=== PATIENT | female | born 1990 | race Caucasian/White ===

== ENCOUNTER 2019-03-29 13:25 | Emergency (ER) | payer MEDICAID, OTHER | END 2019-03-29 14:19 | disposition left against medical advice (07) | LOC: JP.ED 13:25 | DX: Z53.21 Procedure and treatment not carried out due to patient leaving prior to being seen by health care provider (principal) ==

== ENCOUNTER 2019-04-01 13:28 | Inpatient (IN) | payer MEDICAID ==
[2019-04-01] MEDS ORDERED: Ondansetron 4 MG/2 ML SDV IV PRN (13:56)
[2019-04-01] MEDS ORDERED: Polyethylene Glycol 3350 Powder 17 GM Packet PO PRN (13:56)
[2019-04-01] MEDS ORDERED: Albuterol 0.083% 2.5 MG/3 ML Neb Soln NEB PRN (13:56)
[2019-04-01] MEDS ORDERED: Sodium Chloride 0.9% 10 ML Syringe FLUSH PRN (13:56)
[2019-04-01] MEDS ORDERED: Lactated Ringers 1,000 ML IV SCH (14:00)
[2019-04-01] MEDS ORDERED: Melatonin 3 MG Tab PO PRN (14:00)
[2019-04-01] MEDS: Lactobacillus Rhamnosus GG (Probiotic) Cap PO SCH ×2 (15:34→21:45)
[2019-04-01] MEDS: Acetaminophen 325 MG Tab PO PRN ×2 (15:40→20:07)
[2019-04-01] MEDS: Meropenem 1 GM in Sodium Chloride 0.9% 100 ML IV SCH ×2 (16:36→22:52)
--- NOTE | 2019-04-01 17:21 | PCM.HP ---
H&P History of Present Illness - General Date of Service: 04/01/19 Admit Problem/Dx: Admission Diagnosis/Problem Admission Diagnosis/Problem Pneumonia Source of Information: Patient, Family, Provider, RN Notes Reviewed History Limitations: Reports: No Limitations - History of Present Illness Initial Comments - Free Text/Narative: Ms. Guy is a 28-year-old woman who was admitted through the emergency department as a direct admission from the walk-in clinic with right lower lobe pneumonia, having failed outpatient management. She reports that she's been ill for approximately one week with relatively high fevers up to 103F. She was first seen and evaluated in the walk-in clinic 4 days ago, chest x-ray documented a right lower lobe infiltrate. She was treated with oral antibiotic therapy with clindamycin but continued to have significant temperature elevation so she was seen for follow-up 2 days ago and at that time was switched to oral antibiotic therapy with levofloxacin. She had received 1 dose of levofloxacin and despite the change continued to have high temperatures with shortness of breath weakness and fatigue. Follow-up in the walk-in clinic today showed an enlarging infiltrate and normal white blood cell count. Headache Pain Score (Numeric/FACES): 2 - Related Data Allergies/Adverse Reactions: Allergies Allergy/AdvReac Type Severity Reaction Status Date / Time nitrofurantoin Allergy Other Verified 04/01/19 13:59 [From Macrobid] pertussis vaccine,adsorbed Allergy Other Verified 04/01/19 14:00 ranitidine [From Zantac] Allergy Other Verified 04/01/19 13:59 Home Medications: Home Meds Levothyroxine Sodium [Synthroid] 150 mcg PO DAILY 04/01/19 [History] Past Medical History DEVELOPMENT REP History: Reports: Endocrine/Metabolic History: Reports: Hypothyroidism Oncologic (Cancer) History: Reports: Thyroid - Past Surgical History Endocrine Surgical History: Reports: Thyroidectomy Social & Family History - Family History Family Medical History: Noncontributory - Tobacco Use Smoking Status *Q: Never Smoker Second Hand Smoke Exposure: No - Caffeine Use Caffeine Use: Reports: Coffee - Recreational Drug Use Recreational Drug Use: No H&P Review of Systems - Review of Systems: Review Of Systems: See Below General: Reports: Fever, Chills, Weakness, Diaphoresis, Decreased Appetite HEENT: Reports: No Symptoms Pulmonary: Reports: Shortness of Breath, Cough. Denies: Wheezing, Sputum, Hemoptysis Cardiovascular: Reports: Dyspnea on Exertion. Denies: Chest Pain, Palpitations , Orthopnea, PND, Edema, Lightheadedness Gastrointestinal: Reports: No Symptoms Genitourinary: Reports: No Symptoms Musculoskeletal: Reports: No Symptoms Skin: Reports: No Symptoms Psychiatric: Reports: No Symptoms Neurological: Reports: No Symptoms Hematologic/Lymphatic: Reports: No Symptoms Immunologic: Reports: No Symptoms Exam - Exam Exam: See Below - Vital Signs Vital Signs: Last Vital Signs Temp 98.5 F 04/01/19 13:38 Pulse 88 04/01/19 13:38 Resp 16 04/01/19 13:38 BP 113/71 04/01/19 13:38 Pulse Ox 97 04/01/19 14:32 Weight: 166 lb 14.239 oz - Exam Quality Assessment: DVT Prophylaxis General: Alert, Oriented, Cooperative, Moderate Distress HEENT: Conjunctiva Clear, Hearing Intact, Mucosa Moist & [place], Normal Nasal Septum, Posterior Pharynx Clear, Pupils Equal Neck: Supple, Trachea Midline, +2 Carotid Pulse wo Bruit Lungs: Normal Respiratory Effort, Crackles. No: Rales, Rhonchi, Wheezing Cardiovascular: Regular Rate, Regular Rhythm, Normal S1, Normal S2. No: Systolic Murmur, Diastolic Murmur GI/Abdominal Exam: Soft, Non-Tender, No Organomegaly, No Distention Back Exam: Normal Inspection, Full Range of Motion Extremities: Non-Tender, No Pedal Edema Skin: Warm, Dry, Intact Neurological: Cranial Nerves Intact, Strength Equal Bilateral, Normal Speech, Normal Tone, Sensation Intact. No: Focal Deficit Neuro Extensive - Mental Status: Alert, Oriented x3, Normal Mood/Affect, Normal Cognition, Memory Intact - Patient Data Lab Results Last 24 hrs: Laboratory Results - last 24 hr 04/01/19 Range/Units 14:10 Lactic Acid 0.8 (0.4-2.0) mmol/L *Q Meaningful Use (ADM) - VTE Risk Assess *Q Each Risk Factor Represents 1 Point: Obesity ( BMI > 25 kg/m2), Serious lung disease including pneumonia Total Score 1 Point Risk Factors: 2 Each Risk Factor Represents 2 Points: None Total Score 2 Point Risk Factors: 0 Each Risk Factor Represents 3 Points: None Total Score 3 Point Risk Factors: 0 Each Risk Factor Represents 5 Points: None Total Score 5 Point Risk Factors: 0 Venous Thromboembolism Risk Factor Score *Q: 2 Problem List Initiated/Reviewed/Updated: Yes Orders Last 24hrs: Active Orders 24 hr Category Date Time Status Patient Status [ADT] Routine ADT 04/01/19 13:56 Active Ambulate [RC] QID Care 04/01/19 13:56 Active Ambulate [RC] QID Care 04/01/19 13:56 Active Height and Weight [RC] DAILY Care 04/01/19 13:56 Active Intake and Output [RC] QSHIFT Care 04/01/19 13:56 Active Notify Provider Vital Signs [RC] ASDIRECTED Care 04/01/19 13:56 Active Oxygen Therapy [RC] PRN Care 04/01/19 13:56 Active Peripheral IV Care [RC] . DIRECTED Care 04/01/19 13:59 Active Pulse Oximetry [RC] CONTINUOUS Care 04/01/19 13:57 Active RT Aerosol Therapy [RC] ASDIRECTED Care 04/01/19 13:59 Active Up ad Aleyda [RC] ASDIRECTED Care 04/01/19 13:56 Active Up to Chair [RC] QID Care 04/01/19 13:56 Active VTE/DVT Education [RC] Per Unit Routine Care 04/01/19 13:56 Active Vital Signs [RC] Q4H Care 04/01/19 13:56 Active Regular Diet [DIET] Diet 04/01/19 Lunch Active CBC WITH AUTO DIFF [HEME] AM Lab 04/02/19 05:11 Ordered COMPREHENSIVE METABOLIC PN,CMP [CHEM] AM Lab 04/02/19 05:11 Ordered CULTURE BLOOD [BC] Stat Lab 04/01/19 14:00 Received CULTURE BLOOD [BC] Stat Lab 04/01/19 14:10 Received CULTURE RESPIRATORY + SMEAR [RM] Stat Lab 04/01/19 13:56 Ordered Acetaminophen [Tylenol] Med 04/01/19 13:56 Active 650 mg PO Q4H PRN Albuterol [Proventil Neb Soln] Med 04/01/19 13:56 Active 2.5 mg NEB Q4H PRN Lactated Ringers [Ringers, Lactated] 1,000 ml Med 04/01/19 16:00 Active IV ASDIRECTED Lactobacillus Rhamnosus GG [Culturelle] Med 04/01/19 14:30 Active 1 cap PO BID Levofloxacin/Dextrose 5%-Water [Levaquin in D5W 750 MG/ Med 04/01/19 17:13 Ordered 150 ML] 750 mg Premix Bag 1 bag IV ONETIME Melatonin Med 04/01/19 14:00 Active 9 mg PO BEDTIME PRN Meropenem [Merrem] 1 gm Med 04/01/19 15:00 Active Sodium Chloride 0.9% [Normal Saline] 100 ml IV Q8H Ondansetron [Zofran] Med 04/01/19 13:56 Active 4 mg IV Q4H PRN Polyethylene Glycol 3350 [MiraLAX] Med 04/01/19 13:56 Active 17 gm PO DAILY PRN Sodium Chloride 0.9% [Saline Flush] Med 04/01/19 13:56 Active 10 ml FLUSH ASDIRECTED PRN Blood Culture x2 Reflex Set [OM.PC] Stat Oth 04/01/19 13:59 Ordered Peripheral IV Insertion Adult [OM.PC] Routine Oth 04/01/19 13:56 Ordered Resuscitation Status Routine Resus Stat 04/01/19 13:56 Ordered Medication Orders Acetaminophen (Tylenol) 650 mg PO Q4H PRN PRN Reason: Pain (Mild 1-3)/fever Last Admin: 04/01/19 15:40 Dose: 650 mg Albuterol (Proventil Neb Soln) 2.5 mg NEB Q4H PRN PRN Reason: Shortness Of Breath/wheezing Lactated Ringer's (Ringers, Lactated) 1,000 mls @ 125 mls/hr IV ASDIRECTED JASSON Meropenem 1 gm/ Sodium (Chloride) 100 mls @ 200 mls/hr IV Q8H [facility] Last Admin: 04/01/19 16:36 Dose: 200 mls/hr Levofloxacin/Dextrose 750 mg/ (Premix) 150 mls @ 100 mls/hr IV ONETIME ONE Stop: 04/01/19 18:42 Lactobacillus Rhamnosus (Culturelle) 1 cap PO BID [facility] Last Admin: 04/01/19 15:34 Dose: 1 cap Melatonin (Melatonin) 9 mg PO BEDTIME PRN PRN Reason: Insomnia Ondansetron HCl (Zofran) 4 mg IV Q4H PRN PRN Reason: Nausea/Vomiting Polyethylene Glycol (Miralax) 17 gm PO DAILY PRN PRN Reason: Constipation Sodium Chloride (Saline Flush) 10 ml FLUSH ASDIRECTED PRN PRN Reason: Keep Vein Open Assessment/Plan Comment:: ASSESSMENT AND PLAN RIGHT LOWER LOBE PNEUMONIA-having failed outpatient management over the past 4 days with increasing infiltrate and persistent temperature elevations. No evidence of sepsis identified on current evaluation. -IV fluids for hydration -Blood and sputum cultures pending -IV meropenem and levofloxacin MAINTENANCE ISSUES -DVT prophylaxis; not indicated -GI prophylaxis; not indicated -Nj catheter; not indicated -Nutrition; regular diet -Nicotine dependence; not required CODE STATUS-FULL CODE ADMISSION STATUS-patient will be admitted to inpatient status, expect at least a 2 night hospital stay for evaluation and management of problems as outlined above. At the time of this admission I do not reasonably expected evaluation and management of this problem will require more than a 96 hour hospital stay. DISPOSITION-anticipate discharge to home after the hospital stay. PRIMARY CARE PROVIDER-
[2019-04-01] MEDS ORDERED: Levofloxacin/Dextrose 5%-Water 750 MG in Premix Bag 1 BAG IV ONE (17:30)
[2019-04-01] MEDS: Lactated Ringers 1,000 ML IV SCH (19:53)
[2019-04-02] MEDS ORDERED: Benzocaine/Cetylpyridinium/Menthol Lozenge MUCMEM PRN (00:49)
[2019-04-02] MEDS: Acetaminophen 325 MG Tab PO PRN ×3 (04:17→22:58)
[2019-04-02] MEDS: Lactated Ringers 1,000 ML IV SCH (04:42)
[2019-04-02] MEDS: Meropenem 1 GM in Sodium Chloride 0.9% 100 ML IV SCH (07:11)
[2019-04-02] MEDS: Lactobacillus Rhamnosus GG (Probiotic) Cap PO SCH ×2 (09:18→21:19)
--- NOTE | 2019-04-02 13:14 | PCM.PN ---
- General Info Date of Service: 04/02/19 Subjective Update: Ms. Guy feels significantly improved today, no significant temperature elevations, with stable vital signs. Cough and shortness of breath have improved. Increase strength and appetite area Functional Status: Reports: Tolerating Diet, Ambulating, Urinating - Review of Systems General: Reports: Weakness. Denies: Fever, Chills Pulmonary: Reports: Shortness of Breath, Cough. Denies: Pleuritic Chest Pain, Hemoptysis, Wheezing Cardiovascular: Reports: Dyspnea on Exertion. Denies: Chest Pain, Palpitations , Orthopnea, PND Gastrointestinal: Reports: No Symptoms - Patient Data Vitals - Most Recent: Last Vital Signs Temp 98.7 F 04/02/19 10:00 Pulse 75 04/02/19 10:00 Resp 16 04/02/19 10:00 BP 114/75 04/02/19 10:00 Pulse Ox 98 04/02/19 12:56 Weight - Most Recent: 166 lb 14.239 oz I&O - Last 24 Hours: Intake & Output 04/01/19 04/02/19 04/02/19 22:59 06:59 14:59 Intake Total 4550 1662 900 Output Total 2450 3100 Balance 2100 -1438 900 Lab Results Last 24 Hours: Laboratory Results - last 24 hr 04/01/19 04/02/19 04/02/19 Range/Units 14:10 05:15 05:15 WBC 1.9 L (4.5-11.0) K/uL RBC 4.10 (3.30-5.50) M/uL Hgb 11.9 L (12.0-15.0) g/dL Hct 36.5 (36.0-48.0) % MCV 89 (80-98) fL MCH 29 (27-31) pg MCHC 33 (32-36) % Plt Count 163 (150-400) K/uL Neut % (Auto) 52 (36-66) % Lymph % (Auto) 34 (24-44) % [place] % (Auto) 11 H (2-6) % Eos % (Auto) 3 (2-4) % Baso % (Auto) 1 (0-1) % Sodium 143 (140-148) mmol/L Potassium 3.7 (3.6-5.2) mmol/L Chloride 108 (100-108) mmol/L Carbon Dioxide 25 (21-32) mmol/L Anion Gap 9.9 (5.0-14.0) mmol/L BUN 7 (7-18) mg/dL Creatinine 0.7 (0.6-1.0) mg/dL Est Cr Clr Drug Dosing 98.98 mL/min Estimated GFR (MDRD) > 60 (>60) Glucose 91 (74-106) mg/dL Lactic Acid 0.8 (0.4-2.0) mmol/L Calcium 8.5 (8.5-10.1) mg/dL Total Bilirubin 0.2 (0.2-1.0) mg/dL AST 28 (15-37) U/L ALT 33 (12-78) U/L Alkaline Phosphatase 39 L (46-116) U/L Total Protein 6.2 L (6.4-8.2) g/dL Albumin 2.5 L (3.4-5.0) g/dL Globulin 3.7 H (2.3-3.5) g/dL Albumin/Globulin Ratio 0.7 L (1.2-2.2) Med Orders - Current: Current Medications Acetaminophen (Tylenol) 650 mg PO Q4H PRN PRN Reason: Pain (Mild 1-3)/fever Last Admin: 04/02/19 04:17 Dose: 650 mg Albuterol (Proventil Neb Soln) 2.5 mg NEB Q4H PRN PRN Reason: Shortness Of Breath/wheezing Benzocaine/Menthol (Cepacol Sore Throat) 1 lozenge MUCMEM Q1H PRN PRN Reason: Cough Last Admin: 04/02/19 01:03 Dose: 1 lozenge Lactobacillus Rhamnosus (Culturelle) 1 cap PO BID JASSON Last Admin: 04/02/19 09:18 Dose: 1 cap Melatonin (Melatonin) 9 mg PO BEDTIME PRN PRN Reason: Insomnia Ondansetron HCl (Zofran) 4 mg IV Q4H PRN PRN Reason: Nausea/Vomiting Polyethylene Glycol (Miralax) 17 gm PO DAILY PRN PRN Reason: Constipation Sodium Chloride (Saline Flush) 10 ml FLUSH ASDIRECTED PRN PRN Reason: Keep Vein Open Discontinued Medications Lactated Ringer's (Ringers, Lactated) 1,000 mls @ 1,000 mls/hr IV ASDIRECTED JASSON Stop: 04/01/19 16:01 Last Admin: 04/01/19 16:31 Dose: 1,000 mls/hr Lactated Ringer's (Ringers, Lactated) 1,000 mls @ 125 mls/hr IV ASDIRECTED [facility] Last Admin: 04/02/19 04:42 Dose: 125 mls/hr Meropenem 1 gm/ Sodium (Chloride) 100 mls @ 200 mls/hr IV Q8H [facility] Last Admin: 04/02/19 07:11 Dose: 200 mls/hr Levofloxacin/Dextrose 750 mg/ (Premix) 150 mls @ 100 mls/hr IV ONETIME ONE Stop: 04/01/19 18:59 Last Admin: 04/01/19 17:42 Dose: 100 mls/hr - Exam General: Alert, Oriented, Cooperative, Mild Distress Lungs: Normal Respiratory Effort, Crackles (Right base) Cardiovascular: Regular Rate, Regular Rhythm, No Murmurs GI/Abdominal Exam: Soft, Non-Tender, No Organomegaly, No Distention Extremities: Non-Tender, No Pedal Edema - Problem List Review Problem List Initiated/Reviewed/Updated: Yes - My Orders Last 24 Hours: My Active Orders 04/01/19 13:56 Patient Status [ADT] Routine Ambulate [RC] QID Height and Weight [RC] DAILY Intake and Output [RC] QSHIFT Notify Provider Vital Signs [RC] ASDIRECTED Oxygen Therapy [RC] PRN Up ad Aleyda [RC] ASDIRECTED Up to Chair [RC] QID VTE/DVT Education [RC] Per Unit Routine Vital Signs [RC] Q4H CULTURE RESPIRATORY + SMEAR [RM] Stat Acetaminophen [Tylenol] 650 mg PO Q4H PRN Albuterol [Proventil Neb Soln] 2.5 mg NEB Q4H PRN Ondansetron [Zofran] 4 mg IV Q4H PRN Polyethylene Glycol 3350 [MiraLAX] 17 gm PO DAILY PRN Sodium Chloride 0.9% [Saline Flush] 10 ml FLUSH ASDIRECTED PRN Peripheral IV Insertion Adult [OM.PC] Routine Resuscitation Status Routine 04/01/19 13:57 Pulse Oximetry [RC] CONTINUOUS 04/01/19 13:59 Peripheral IV Care [RC] . DIRECTED RT Aerosol Therapy [RC] ASDIRECTED Blood Culture x2 Reflex Set [OM.PC] Stat 04/01/19 14:00 CULTURE BLOOD [BC] Stat Melatonin 9 mg PO BEDTIME PRN 04/01/19 14:10 CULTURE BLOOD [BC] Stat 04/01/19 14:30 Lactobacillus Rhamnosus GG [Culturelle] 1 cap PO BID 04/02/19 00:49 Benzocaine/Cetylpyrd/Menthol [Cepacol Sore Throat] 1 lozenge MUCMEM Q1H PRN 04/02/19 13:11 Convert IV to Saline Lock [OM.PC] Routine 04/03/19 05:00 BASIC METABOLIC PANEL,BMP [CHEM] Timed CBC WITH AUTO DIFF [HEME] Timed - Plan Plan:: ASSESSMENT AND PLAN RIGHT LOWER LOBE PNEUMONIA-having failed outpatient management over the past 4 days with increasing infiltrate and persistent temperature elevations. No evidence of sepsis identified on current evaluation. Significantly improved from admission blood shortness of breath and better appetite -Saline lock IV -Blood and sputum cultures pending -IV levofloxacin MAINTENANCE ISSUES -DVT prophylaxis; not indicated -GI prophylaxis; not indicated -Nj catheter; not indicated -Nutrition; regular diet -Nicotine dependence; not required CODE STATUS-FULL CODE ADMISSION STATUS-patient will be admitted to inpatient status, expect at least a 2 night hospital stay for evaluation and management of problems as outlined above. At the time of this admission I do not reasonably expected evaluation and management of this problem will require more than a 96 hour hospital stay. DISPOSITION-anticipate discharge to home after the hospital stay. PRIMARY CARE PROVIDER-
[2019-04-02] MEDS ORDERED: Levofloxacin/Dextrose 5%-Water 750 MG in Premix Bag 1 BAG IV SCH (17:00)
[2019-04-03] MEDS: Lactobacillus Rhamnosus GG (Probiotic) Cap PO SCH (09:35)
[2019-04-03] MEDS ORDERED: Levofloxacin/Dextrose 5%-Water 750 MG in Premix Bag 1 BAG IV ONE (11:15)
--- NOTE | 2019-04-03 12:36 | PCM.DCSUM1 ---
Discharge Summary - Hospital Course Brief History: Ms. Guy is a 28-year-old woman who was admitted as a direct admission from the clinic with weakness, fever, and cough secondary to a right lower lobe pneumonia, having failed outpatient management. - Discharge Data Discharge Date: 04/03/19 Discharge Disposition: Home, Self-Care 01 Condition: Fair - Discharge Diagnosis/Problem(s) (1) Pneumonia SNOMED Code(s): 744309803 ICD Code: J18.9 - PNEUMONIA, UNSPECIFIED ORGANISM Status: Acute Current Visit: Yes Qualifiers: Pneumonia type: due to unspecified organism Laterality: right Lung location: lower lobe of lung Qualified Code(s): J18.1 - Lobar pneumonia, unspecified organism - Patient Summary/Data Hospital Course: Ms. Guy is a 28-year-old woman who was admitted through the emergency department as a direct admission from the walk-in clinic with right lower lobe pneumonia, having failed outpatient management. She reports that she's been ill for approximately one week with relatively high fevers up to 103F. She was first seen and evaluated in the walk-in clinic 4 days ago, chest x-ray documented a right lower lobe infiltrate. She was treated with oral antibiotic therapy with clindamycin but continued to have significant temperature elevation so she was seen for follow-up 2 days ago and at that time was switched to oral antibiotic therapy with levofloxacin. She had received 1 dose of levofloxacin and despite the change continued to have high temperatures with shortness of breath weakness and fatigue. Follow-up in the walk-in clinic today showed an enlarging infiltrate and normal white blood cell count. On admission blood cultures were obtained and she was given IV fluids for hydration. IV antibiotic therapy was initiated with levofloxacin and Zosyn. More broad-spectrum antibiotic therapy was started initially because she had failed outpatient management. She improved relatively quickly and even on the day prior to discharge noted significant improvement, IV Zosyn was discontinued on the day prior to discharge. Blood cultures remain negative throughout her hospital stay. By the time of discharge was feeling significantly improved with no significant temperature elevations over the past 48 hours. Continues to experience cough and will be discharged home with RobitussinAC. Activity will be as tolerated and she will resume her usual diet. Follow-up appointment will be scheduled with primary care within 1 week, chest x-ray can be obtained at the time of follow-up appointment to assure improvement in infiltrate which should be followed to resolution. She already has a prescription for oral levofloxacin 750 mg daily and she will take an additional 7 days of this medication. She is instructed not to breast-feed while taking the levofloxacin. She will continue on probiotic therapy twice daily. She is also instructed to return to the emergency department immediately if she notes recurrent fever, increased shortness of breath, or lack of continued improvement. - Patient Instructions Diet: Usual Diet as Tolerated Activity: As Tolerated Other/Special Instructions: Please schedule follow-up appointment with primary care provider within one week. Consider follow-up chest x-ray at the time of appointment. Patient already has available prescription for levofloxacin 750 mg daily and will take an additional 7 days of therapy. She is encouraged to continue probiotic therapy twice daily. - Discharge Plan *PRESCRIPTION DRUG MONITORING PROGRAM REVIEWED*: Not Applicable *COPY OF PRESCRIPTION DRUG MONITORING REPORT IN PATIENT JIL: Not Applicable Home Medications: Home Meds Levothyroxine Sodium [Synthroid] 150 mcg PO DAILY 04/01/19 [History] Patient Handouts: White Blood Cell Count Test, Community-Acquired Pneumonia, Adult - Discharge Summary/Plan Comment DC Time >30 min.: No - Patient Data Vitals - Most Recent: Last Vital Signs Temp 98.0 F 04/03/19 10:57 Pulse 78 04/03/19 10:57 Resp 18 04/03/19 10:57 BP 113/75 04/03/19 10:57 Pulse Ox 94 L 04/03/19 10:57 Weight - Most Recent: 166 lb 14.239 oz I&O - Last 24 hours: Intake & Output 04/02/19 04/03/19 04/03/19 22:59 06:59 14:59 Intake Total 890 150 Balance 890 150 Lab Results - Last 24 hrs: Laboratory Results - last 24 hr 04/03/19 04/03/19 Range/Units 05:00 05:57 WBC 2.3 L (4.5-11.0) K/uL RBC 4.28 (3.30-5.50) M/uL Hgb 12.4 (12.0-15.0) g/dL Hct 38.0 (36.0-48.0) % MCV 89 (80-98) fL MCH 29 (27-31) pg MCHC 33 (32-36) % Plt Count 191 (150-400) K/uL Neut % (Auto) 43 (36-66) % Lymph % (Auto) 39 (24-44) % [place] % (Auto) 13 H (2-6) % Eos % (Auto) 4 (2-4) % Baso % (Auto) 1 (0-1) % Sodium 141 (140-148) mmol/L Potassium 4.2 (3.6-5.2) mmol/L Chloride 105 (100-108) mmol/L Carbon Dioxide 30 (21-32) mmol/L Anion Gap 6.2 (5.0-14.0) mmol/L BUN 7 (7-18) mg/dL Creatinine 0.8 (0.6-1.0) mg/dL Est Cr Clr Drug Dosing 86.60 mL/min Estimated GFR (MDRD) > 60 (>60) Glucose 98 (74-106) mg/dL Calcium 8.6 (8.5-10.1) mg/dL ANGELICA Results - Last 24 hrs: Microbiology 04/01/19 14:10 Aerobic Blood Culture - Preliminary Blood - Arm, Left NO GROWTH AFTER 1 DAY Anaerobic Blood Culture - Preliminary NO GROWTH AFTER 1 DAY 04/01/19 14:00 Aerobic Blood Culture - Preliminary Blood - Arm, Left NO GROWTH AFTER 1 DAY Anaerobic Blood Culture - Preliminary NO GROWTH AFTER 1 DAY Med Orders - Current: Current Medications Acetaminophen (Tylenol) 650 mg PO Q4H PRN PRN Reason: Pain (Mild 1-3)/fever Last Admin: 04/02/19 22:58 Dose: 650 mg Albuterol (Proventil Neb Soln) 2.5 mg NEB Q4H PRN PRN Reason: Shortness Of Breath/wheezing Benzocaine/Menthol (Cepacol Sore Throat) 1 lozenge MUCMEM Q1H PRN PRN Reason: Cough Last Admin: 04/02/19 01:03 Dose: 1 lozenge Levofloxacin/Dextrose 750 mg/ (Premix) 150 mls @ 100 mls/hr IV ONETIME ONE Stop: 04/03/19 12:44 Last Admin: 04/03/19 11:05 Dose: 100 mls/hr Lactobacillus Rhamnosus (Culturelle) 1 cap PO BID JASSON Last Admin: 04/03/19 09:35 Dose: 1 cap Melatonin (Melatonin) 9 mg PO BEDTIME PRN PRN Reason: Insomnia Ondansetron HCl (Zofran) 4 mg IV Q4H PRN PRN Reason: Nausea/Vomiting Last Admin: 04/02/19 14:06 Dose: 4 mg Polyethylene Glycol (Miralax) 17 gm PO DAILY PRN PRN Reason: Constipation Sodium Chloride (Saline Flush) 10 ml FLUSH ASDIRECTED PRN PRN Reason: Keep Vein Open Discontinued Medications Lactated Ringer's (Ringers, Lactated) 1,000 mls @ 1,000 mls/hr IV ASDIRECTED [facility] Stop: 04/01/19 16:01 Last Admin: 04/01/19 16:31 Dose: 1,000 mls/hr Lactated Ringer's (Ringers, Lactated) 1,000 mls @ 125 mls/hr IV ASDIRECTED [facility] Last Admin: 04/02/19 04:42 Dose: 125 mls/hr Meropenem 1 gm/ Sodium (Chloride) 100 mls @ 200 mls/hr IV Q8H [facility] Last Admin: 04/02/19 07:11 Dose: 200 mls/hr Levofloxacin/Dextrose 750 mg/ (Premix) 150 mls @ 100 mls/hr IV ONETIME ONE Stop: 04/01/19 18:59 Last Admin: 04/01/19 17:42 Dose: 100 mls/hr Levofloxacin/Dextrose 750 mg/ (Premix) 150 mls @ 100 mls/hr IV Q24H [facility] Last Admin: 04/02/19 17:08 Dose: 100 mls/hr - Exam General: Reports: Alert, Oriented, Cooperative, Mild Distress Lungs: Reports: Normal Respiratory Effort, Rales (Right lower lung field) Cardiovascular: Reports: Regular Rate, Regular Rhythm, No Murmurs GI/Abdominal Exam: Soft, Non-Tender, No Organomegaly, No Distention
== END 2019-04-03 13:18 | disposition home or self-care (01) | DRG 195 ==
LOC: JP.MS 13:28
PROVIDERS: ADMIT Hospitalist; ATTEND Hospitalist
DX: J18.1 Lobar pneumonia, unspecified organism (principal); Z88.1 Allergy status to other antibiotic agents; Z88.7 Allergy status to serum and vaccine; Z88.8 Allergy status to other drugs, medicaments and biological substances; E89.0 Postprocedural hypothyroidism
CPT/HCPCS: 36415; 80048; 80053; 83605; 85025; 87040; 94762; A9270-GY; J1956; J2185; J2405; J7030; J7120

== ENCOUNTER 2019-05-29 09:31 | Emergency (ER) | payer MEDICAID ==
[2019-05-29] MEDS ORDERED: Ketorolac 60 MG/2 ML SDV IM ONE (09:58)
--- NOTE | 2019-05-29 10:04 | EDM.PDOC ---
ED HPI GENERAL MEDICAL PROBLEM - General Chief Complaint: Cardiovascular Problem Stated Complaint: CHEST PAIN Time Seen by Provider: 05/29/19 09:50 Source of Information: Reports: Patient, Old Records History Limitations: Reports: No Limitations - History of Present Illness INITIAL COMMENTS - FREE TEXT/NARRATIVE: 29 yo female presents with sternal pain that radiates around her chest. No fever or SOB. Some cough and recently coughed up some hard material that is yellow/napoles in color that she brought in a plastic bag. Was hospitalized about 3 weeks ago for pneumonia. Due to her current sx's that began after her pneumonia she was CT scanned and this showed nothing. An EKG was also done and was normal. She is being tx'd with naproxen twice daily unknown dose and this is not resolving the problem, last dose yesterday. She comes in now basically for a second opinion, sees Dr. De La O. Onset: Gradual Duration: Day(s):, Getting Worse Location: Reports: Chest Quality: Reports: Pressure Severity: Moderate Improves with: Reports: Medication Worsens with: Reports: Other (medication wearing off) Context: Reports: Other (See HPI) Associated Symptoms: Reports: Chest Pain (sternal pain), Cough. 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) (none, has been on naproxen.) Middle Chest Pain Score (Numeric/FACES): 5 - Related Data Allergies Allergy/AdvReac Type Severity Reaction Status Date / Time nitrofurantoin Allergy Other Verified 05/29/19 09:43 [From Macrobid] pertussis vaccine,adsorbed Allergy Other Verified 05/29/19 09:43 ranitidine [From Zantac] Allergy Other Verified 05/29/19 09:43 Home Meds: Home Meds Levothyroxine Sodium [Synthroid] 150 mcg PO DAILY 04/01/19 [History] Past Medical History HEENT History: Reports: None Gastrointestinal History: Reports: None 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: Musculoskeletal History: Reports: None Neurological History: Reports: None Endocrine/Metabolic History: Reports: Hypothyroidism Oncologic (Cancer) History: Reports: Thyroid - Past Surgical History Head Surgeries/Procedures: Reports: None HEENT Surgical History: Reports: None GI Surgical History: Reports: Cholecystectomy, Hernia, Abdominal Endocrine Surgical History: Reports: Thyroidectomy Neurological Surgical History: Reports: None Musculoskeletal Surgical History: Reports: None Oncologic Surgical History: Reports: None Dermatological Surgical History: Reports: None Social & Family History - Family History Family Medical History: Noncontributory - Tobacco Use Smoking Status *Q: Never Smoker Second Hand Smoke Exposure: No - Caffeine Use Caffeine Use: Reports: Coffee - Recreational Drug Use Recreational Drug Use: No ED ROS GENERAL - Review of Systems Review Of Systems: See Below Constitutional: Reports: No Symptoms HEENT: Reports: No Symptoms Respiratory: Reports: Cough, Sputum (rarely). Denies: Shortness of Breath, Wheezing, Pleuritic Chest Pain, Hemoptysis Cardiovascular: Reports: Chest Pain (sternal), Blood Pressure Problem (running higher than usual for her). Denies: Claudication, Dyspnea on Exertion, Edema, Lightheadedness, Orthopnea, Palpitations, PND, Syncope Endocrine: Reports: No Symptoms GI/Abdominal: Reports: No Symptoms : Reports: No Symptoms Musculoskeletal: Reports: Other (sternal tenderness) Skin: Reports: No Symptoms Neurological: Reports: No Symptoms ED EXAM, GENERAL - Physical Exam Exam: See Below Exam Limited By: No Limitations General Appearance: Alert, WD/WN, No Apparent Distress Eye Exam: Bilateral Eye: Normal Inspection Ears: Normal External Exam, Normal Canal, Hearing Grossly Normal, Normal TMs Ear Exam: Bilateral Ear: Auricle Normal, Canal Normal, TM normal Nose: Normal Inspection, No Blood Throat/Mouth: Normal Inspection, Normal Lips, Normal Oropharynx, Normal Voice, No Airway Compromise Head: Atraumatic, Normocephalic Neck: Normal Inspection Respiratory/Chest: No Respiratory Distress, Lungs Clear, Normal Breath Sounds, No Accessory Muscle Use, Other (sternal tenderness). No: Chest Non-Tender Cardiovascular: Regular Rate, Rhythm, No Edema GI/Abdominal: Normal Bowel Sounds, Soft, Non-Tender, No Distention Back Exam: Normal Inspection. No: CVA Tenderness (R), CVA Tenderness (L) Extremities: Normal Inspection, Normal Range of Motion, Non-Tender, No Pedal Edema Neurological: Alert, Oriented, CN II-XII Intact, Normal Cognition, No Motor/ Sensory Deficits Psychiatric: Normal Affect, Normal Mood Skin Exam: Warm, Dry, Intact, Normal Color, No Rash Course - Vital Signs Last Recorded V/S: Last Vital Signs Temp 36.4 C 05/29/19 09:44 Pulse 91 05/29/19 09:44 Resp 15 05/29/19 09:44 BP 139/85 05/29/19 09:44 Pulse Ox 100 05/29/19 09:44 - Orders/Labs/Meds Labs: Laboratory Tests 05/29/19 05/29/19 05/29/19 Range/Units 10:10 10:10 10:10 WBC 4.1 L (4.5-11.0) K/uL RBC 4.83 (3.30-5.50) M/uL Hgb 14.0 (12.0-15.0) g/dL Hct 42.7 (36.0-48.0) % MCV 88 (80-98) fL MCH 29 (27-31) pg MCHC 33 (32-36) % Plt Count 180 (150-400) K/uL D-Dimer, Quantitative < 100 (0.0-400.0) ng/mL Sodium (140-148) mmol/L Potassium (3.6-5.2) mmol/L Chloride (100-108) mmol/L Carbon Dioxide (21-32) mmol/L Anion Gap (5.0-14.0) mmol/L BUN (7-18) mg/dL Creatinine (0.6-1.0) mg/dL Est Cr Clr Drug Dosing mL/min Estimated GFR (MDRD) (>60) Glucose (74-106) mg/dL Calcium (8.5-10.1) mg/dL Troponin I < 0.017 (0.000-0.056) ng/mL C-Reactive Protein < 0.30 (0.0-0.3) mg/dL Urine Color (YELLOW) Urine Appearance (CLEAR) Urine pH (5.0-8.0) Ur Specific [place] (1.008-1.030) Urine Protein (NEGATIVE) mg/dL Urine Glucose (UA) (NEGATIVE) mg/dL Urine Ketones (NEGATIVE) mg/dL Urine Occult Blood (NEGATIVE) Urine Nitrite (NEGATIVE) Urine Bilirubin (NEGATIVE) Urine Urobilinogen (0.2-1.0) EU/dL Ur Leukocyte Esterase (NEGATIVE) Urine RBC (0-5) Urine WBC (0-5) Ur Epithelial Cells Amorphous Sediment Urine Bacteria Urine Mucus 05/29/19 05/29/19 Range/Units 10:10 10:38 WBC (4.5-11.0) K/uL RBC (3.30-5.50) M/uL Hgb (12.0-15.0) g/dL Hct (36.0-48.0) % MCV (80-98) fL MCH (27-31) pg MCHC (32-36) % Plt Count (150-400) K/uL D-Dimer, Quantitative (0.0-400.0) ng/mL Sodium 141 (140-148) mmol/L Potassium 3.9 (3.6-5.2) mmol/L Chloride 105 (100-108) mmol/L Carbon Dioxide 25 (21-32) mmol/L Anion Gap 10.7 (5.0-14.0) mmol/L BUN 11 D (7-18) mg/dL Creatinine 0.8 (0.6-1.0) mg/dL Est Cr Clr Drug Dosing 85.83 mL/min Estimated GFR (MDRD) > 60 (>60) Glucose 99 (74-106) mg/dL Calcium 9.1 (8.5-10.1) mg/dL Troponin I (0.000-0.056) ng/mL C-Reactive Protein (0.0-0.3) mg/dL Urine Color Yellow (YELLOW) Urine Appearance Clear (CLEAR) Urine pH 7.0 (5.0-8.0) Ur Specific [place] 1.015 (1.008-1.030) Urine Protein Negative (NEGATIVE) mg/dL Urine Glucose (UA) Negative (NEGATIVE) mg/dL Urine Ketones Negative (NEGATIVE) mg/dL Urine Occult Blood Negative (NEGATIVE) Urine Nitrite Negative (NEGATIVE) Urine Bilirubin Negative (NEGATIVE) Urine Urobilinogen 0.2 (0.2-1.0) EU/dL Ur Leukocyte Esterase Negative (NEGATIVE) Urine RBC Not seen (0-5) Urine WBC 0-5 (0-5) Ur Epithelial Cells Few Amorphous Sediment Not seen Urine Bacteria Not seen Urine Mucus Not seen Meds: Medications Discontinued Medications Generic Name Dose Route Start Last Admin Trade Name Freq PRN Reason Stop Dose Admin Ketorolac Tromethamine 60 mg 05/29/19 09:58 05/29/19 10:03 Toradol IM 05/29/19 09:59 60 mg ONETIME ONE Administration - Radiology Interpretation Free Text/Narrative:: CXR-neg Departure - Departure Time of Disposition: 10:57 Disposition: Home, Self-Care 01 Condition: Good Clinical Impression: Costochondritis Instructions: Costochondritis, [id number] Referrals: Diane Morton MD [Primary Care Provider] - Forms: ED Department Discharge Additional Instructions: Continue your naproxen as before. Add acetaminophen up to 1000 mg every 6 hrs as needed. F/U with your provider if not improving.
--- NOTE | 2019-05-29 10:30 | CRLCR ---
Indication: Chest pain with cough. Recent pneumonia. Technique: PA and lateral views the chest were obtained. Comparison: April 01, 2019. Findings: Right lower lobe infiltrate has resolved. No infiltrate, pleural effusion, or pneumothorax is identified. The heart is normal in size. Impression: No acute cardiopulmonary process. Dictated by Colleen Chaidez MD @ May 29 2019 10:28AM Signed by Dr. Colleen Chaidez @ May 29 2019 10:29AM
== END 2019-05-29 11:12 | disposition home or self-care (01) ==
LOC: JP.ED 09:31
DX: M94.0 Chondrocostal junction syndrome [Tietze] (principal); E03.9 Hypothyroidism, unspecified; Z79.899 Other long term (current) drug therapy; Z88.8 Allergy status to other drugs, medicaments and biological substances; Z88.7 Allergy status to serum and vaccine
CPT/HCPCS: 36415; 71046; 80048; 81001; 84484; 85027; 85379; 86140; 96372; 99285; J1885

== ENCOUNTER 2019-11-04 18:58 | Emergency (ER) | payer MEDICAID ==
--- NOTE | 2019-11-04 19:32 | EDM.PDOC ---
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 today. She is approximately 6 weeks based on last menstrual period and other signs. She has had miscarriages in the past but has an [id number] son. She is on oral progesterone supplements for this , as she was for her previous given her OB history. The pain began suddenly and is in the left lower quadrant more or less adjacent to the bladder region. She feels it as a sharp, stabbing pain which goes all the way through into her back. If she is standing and walking the pain is more uncomfortable. She is seated with hips flexed pain is that her but not gone. She denies any other recent changes in health. She has had 3 quantitative hCG tests done since the was identified and those values have been progressing as expected. Onset: Today Duration: Hour(s): (Seven) Location: Reports: Abdomen (LLQ) Quality: Reports: Sharp, Stabbing Severity: Moderate Improves with: Reports: None Worsens with: Reports: Movement Associated Symptoms: Reports: No Other Symptoms Left Abdominal Pain Score (Numeric/FACES): 7 - Related Data Allergies Allergy/AdvReac Type Severity Reaction Status Date / Time cefaclor Allergy Rash Verified 11/04/19 19:10 cefixime Allergy Rash Verified 11/04/19 19:10 nitrofurantoin Allergy Other Verified 11/04/19 19:10 [From Macrobid] pertussis vaccine,adsorbed Allergy Other Verified 11/04/19 19:10 ranitidine [From Zantac] Allergy Other Verified 11/04/19 19:10 Home Meds: Home Meds Levothyroxine Sodium [Synthroid] 175 mcg PO DAILY 11/04/19 [History] [id number]/Iron Fumarate/FA/DSS [ 19 Tablet] 1 tab PO DAILY 11/04/19 [ History] Progesterone, Micronized [Progesterone] 100 mg PO BEDTIME 11/04/19 [History] Past Medical History HEENT History: Reports: Otitis Media Gastrointestinal History: Reports: None Genitourinary History: Reports: UTI, Recurrent 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: , 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 Musculoskeletal History: Reports: None Neurological History: Reports: None, Migraines Endocrine/Metabolic History: Reports: Hypothyroidism Oncologic (Cancer) History: Reports: Thyroid 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 - Infectious Disease History Infectious Disease History: Reports: Chicken Pox - Past Surgical History Head Surgeries/Procedures: Reports: None HEENT Surgical History: Reports: Myringotomy w Tube(s) GI Surgical History: Reports: Cholecystectomy, Hernia, Abdominal Endocrine Surgical History: Reports: Thyroidectomy Neurological Surgical History: Reports: None Musculoskeletal Surgical History: Reports: None Oncologic Surgical History: Reports: None Dermatological Surgical History: Reports: None Social & Family History - Family History Family Medical History: Noncontributory - Tobacco Use Smoking Status *Q: Never Smoker - Caffeine Use Caffeine Use: Reports: Coffee - Recreational Drug Use Recreational Drug Use: No ED ROS GENERAL - Review of Systems Review Of Systems: See Below Constitutional: Reports: Other (Occasional hot flashes which she attributes to the progesterone dosing.) Respiratory: Reports: No Symptoms GI/Abdominal: Reports: Abdominal Pain (Left lower quadrant pain as described.), Other (She denies vaginal bleeding or discharge.) : Denies: Dysuria, Incontinence ED EXAM - Physical Exam Exam: See Below Exam Limited By: No Limitations General Appearance: No Apparent Distress GI/Abdominal Exam: Tender (Mild tenderness to palpation in the left lower quadrant and suprapubic region. With abdominal pressure anteriorly, she feels pain in the back at the same time.) Back Exam: CVA Tenderness (L) (Mild in nature) Course - Vital Signs Last Recorded V/S: Last Vital Signs Temp 36.8 C 11/04/19 19:14 Pulse 70 11/04/19 19:14 Resp 17 11/04/19 19:14 BP 115/81 11/04/19 19:14 Pulse Ox 98 11/04/19 19:14 - Orders/Labs/Meds Labs: Laboratory Tests 11/04/19 11/04/19 Range/Units 19:50 19:50 WBC 7.4 (4.5-11.0) K/uL RBC 4.79 (3.30-5.50) M/uL Hgb 14.0 (12.0-15.0) g/dL Hct 41.7 (36.0-48.0) % MCV 87 (80-98) fL MCH 29 (27-31) pg MCHC 34 (32-36) % Plt Count 214 (150-400) K/uL Neut % (Auto) 70 H (36-66) % Lymph % (Auto) 22 L (24-44) % [place] % (Auto) 7 H (2-6) % Eos % (Auto) 1 L (2-4) % Baso % (Auto) 0 (0-1) % Sodium 137 L (140-148) mmol/L Potassium 3.8 (3.6-5.2) mmol/L Chloride 103 (100-108) mmol/L Carbon Dioxide 27 (21-32) mmol/L Anion Gap 10.8 (5.0-14.0) mmol/L BUN 14 (7-18) mg/dL Creatinine 1.0 (0.6-1.0) mg/dL Est Cr Clr Drug Dosing 68.67 mL/min Estimated GFR (MDRD) > 60 (>60) Glucose 91 (74-106) mg/dL Calcium 9.0 (8.5-10.1) mg/dL HCG, Quant 36913 H (0-6) mIU/mL - Radiology Interpretation Free Text/Narrative:: Obstetric ultrasound obtained tonight shows intrauterine location and gestation of just under 6 weeks. There is no free fluid or obvious ectopic . - Re-Assessments/Exams Free Text/Narrative Re-Assessment/Exam: 11/04/19 19:49 We will repeat a quantitative hCG as well as hemoglobin and basic metabolic profile today. An ultrasound will be obtained to look for possible ectopic . We discussed the fact that given her early gestation, a comprehensive ultrasound image may not be obtained tonight. She understands. 11/04/19 21:20 I reviewed lab results and ultrasound findings with patient and her . There is no evidence of ectopic and the estimated gestational age is in concordance with her last menstrual period and expected gestation. I recommend continuing current cares as recommended by obstetric physician. She can use Tylenol 1000 mg for pain. Contact obstetric doctor with questions. Return to this emergency Department if feeling worse in anyway. Departure - Departure Time of Disposition: 21:10 Disposition: Home, Self-Care 01 Clinical Impression: , Pelvic pain - Discharge Information *PRESCRIPTION DRUG MONITORING PROGRAM REVIEWED*: Not Applicable *COPY OF PRESCRIPTION DRUG MONITORING REPORT IN PATIENT JIL: Not Applicable Instructions: Abdominal Pain During , [id number] Referrals: Diane Morton MD [Primary Care Provider] - Forms: ED Department Discharge Additional Instructions: Continue currently recommended care for your . Use of Tylenol 1000 mg 3 times a day can improve the pain in the ear feeling in the abdomen and pelvis. Contact OB physician with further questions as needed. Notes from this visit should be available to be sent to your doctor in one or 2 days if you need to do so. If feeling worse in anyway return to this emergency department. Sepsis Event Note - Evaluation Sepsis Screening Result: No Definite Risk - Focused Exam Vital Signs: Vital Signs Temp Pulse Resp BP Pulse Ox 11/04/19 19:14 36.8 C 70 17 115/81 98 11/04/19 19:13 36.8 C 70 17 115/81 98 Date Exam was Performed: 11/04/19 Time Exam was Performed: 21:22
--- NOTE | 2019-11-04 20:58 | CRLUS ---
INDICATION: Left lower quadrant pain, evaluate for ectopic TECHNIQUE: Ultrasound OB pelvis transabdominal. Real time khanna scale imaging of the pelvis was performed. COMPARISON: None FINDINGS: LMP: 09/29/2019 Station age by LMP: 5 weeks 1 day Estimated due date by LMP: 07/05/2020 Sonographic imaging demonstrates a single living intrauterine gestation. The embryo demonstrates a regular cardiac rate measuring beats per minute. The embryo`s crown rump length measurement of 0.25 cm corresponds to a gestational age of 5 weeks 6 days with a sonographic due date of 10/30/2019. There is a normal appearing yolk sac. There are no gross abnormalities noted within the embryo at this early state of development. The placenta has not yet developed. The gestational sac has a normal appearance and there is no evidence of a perigestational hemorrhage. The amount of fluid within the sac appears appropriate for gestational age. The cervix is closed. The myometrium appears normal. The ovaries are of normal size. There are no suspicious fluid collections noted in the cul-de-sac. IMPRESSION: Viable intrauterine . Gestational age calculated at 5 weeks 6 days with a sonographic due date of 06/30/2020. No abnormalities seen. Normal ovaries and adnexa. Dictated by Shawn Ingram MD @ 11/04/2019 8:56:03 PM Dictated by: Shawn Ingram MD @ 11/04/2019 20:56:08 (Electronically Signed)
== END 2019-11-04 21:20 | disposition home or self-care (01) ==
LOC: JP.ED 18:58
DX: O99.89 Other specified diseases and conditions complicating pregnancy, childbirth and the puerperium (principal); R10.2 Pelvic and perineal pain; R10.32 Left lower quadrant pain; O99.281 Endocrine, nutritional and metabolic diseases complicating pregnancy, first trimester; E03.9 Hypothyroidism, unspecified; Z79.899 Other long term (current) drug therapy; Z88.1 Allergy status to other antibiotic agents; Z88.8 Allergy status to other drugs, medicaments and biological substances; Z3A.01 Less than 8 weeks gestation of pregnancy
CPT/HCPCS: 36415; 76801; 80048; 84702; 85025; 99284-25

== ENCOUNTER 2020-10-27 16:22 | Emergency (ER) | payer MEDICAID ==
--- NOTE | 2020-10-27 17:17 | EDM.PDOC ---
ED HPI GENERAL MEDICAL PROBLEM - General Chief Complaint: ENT Problem Stated Complaint: SORE THROAT Time Seen by Provider: 10/27/20 17:15 Source of Information: Reports: Patient, Family, RN Notes Reviewed History Limitations: Reports: No Limitations - History of Present Illness INITIAL COMMENTS - FREE TEXT/NARRATIVE: 30-year-old female presents emergency department a complaint of sore throat states that sore throat for about 3 days with some swelling lymph nodes in her neck has not had any fevers no cough, is concerned about strep throat - Related Data Allergies Allergy/AdvReac Type Severity Reaction Status Date / Time cefaclor Allergy Rash Verified 10/27/20 16:33 cefixime Allergy Rash Verified 10/27/20 16:33 nitrofurantoin Allergy Other Verified 10/27/20 16:33 [From Macrobid] pertussis vaccine,adsorbed Allergy Other Verified 10/27/20 16:33 ranitidine [From Zantac] Allergy Other Verified 10/27/20 16:33 Home Meds: Home Meds Levothyroxine Sodium [Synthroid] 135 mcg PO DAILY 11/04/19 [History] Past Medical History HEENT History: Reports: Otitis Media Other HEENT History: preauricular mass Cardiovascular History: Reports: Other (See Below) Other Cardiovascular History: palpations Respiratory History: Reports: Other (See Below) Other Respiratory History: exercise induced asthma Genitourinary History: Reports: UTI, Recurrent 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: , 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 Musculoskeletal History: Reports: None Neurological History: Reports: None, Migraines Psychiatric History: Reports: Anxiety Endocrine/Metabolic History: Reports: Hypothyroidism Oncologic (Cancer) History: Reports: Thyroid 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 - Infectious Disease History Infectious Disease History: Reports: Chicken Pox - Past Surgical History Head Surgeries/Procedures: Reports: None HEENT Surgical History: Reports: Myringotomy w Tube(s) Cardiovascular Surgical History: Reports: None Respiratory Surgical History: Reports: None GI Surgical History: Reports: Cholecystectomy, Hernia, Abdominal Female Surgical History: Reports: None Endocrine Surgical History: Reports: Thyroidectomy Neurological Surgical History: Reports: None Musculoskeletal Surgical History: Reports: None Oncologic Surgical History: Reports: None Dermatological Surgical History: Reports: None Social & Family History - Family History Family Medical History: No Pertinent Family History - Tobacco Use Tobacco Use Status *Q: Never Tobacco User Second Hand Smoke Exposure: No - Caffeine Use Caffeine Use: Reports: None - Recreational Drug Use Recreational Drug Use: No ED ROS ENT - Review of Systems Review Of Systems: See Below Constitutional: Denies: Fever HEENT: Reports: Throat Pain, Throat Swelling Respiratory: Reports: No Symptoms Cardiovascular: Reports: No Symptoms ED EXAM, ENT - Physical Exam Exam: See Below Exam Limited By: No Limitations General Appearance: Alert, WD/WN, No Apparent Distress Nose: Normal Inspection, Normal Mucousa, No Blood Mouth/Throat: Normal Inspection, Normal Gums, Normal Lips, Normal Oropharynx, Normal Teeth Head: Atraumatic, Normocephalic Neck: Normal Inspection, Supple, Non-Tender, Full Range of Motion Respiratory/Chest: No Respiratory Distress Course - Vital Signs Last Recorded V/S: Last Vital Signs Temp 97.6 F 10/27/20 16:32 Pulse 85 10/27/20 16:32 Resp 17 10/27/20 16:32 BP 129/89 10/27/20 16:32 Pulse Ox 99 10/27/20 16:32 - Orders/Labs/Meds Orders: Active Orders 24 hr Category Date Time Status CORONAVIRUS COVID-19, TYRONE Stat Lab 10/27/20 17:35 Ordered CULTURE STREP A CONFIRMATION [] Stat Lab 10/27/20 17:16 Results STREP SCRN A RAPID W CULT CONF [] Stat Lab 10/27/20 17:16 Results Departure - Departure Time of Disposition: 17:36 Disposition: Home, Self-Care 01 Condition: Fair Clinical Impression: Pharyngitis Qualifiers: Pharyngitis/tonsillitis etiology: unspecified etiology Qualified Code(s): J02.9 - Acute pharyngitis, unspecified - Discharge Information Instructions: Strep Throat, Adult, [id number] Referrals: PCP,None [Primary Care Provider] - Forms: ED Department Discharge Additional Instructions: -We will contact you with the results of Covid test and the strep culture, continue symptomatic care recommend self isolating until results become available on your Covid test Sepsis Event Note (ED) - Evaluation Sepsis Screening Result: No Definite Risk - Focused Exam Vital Signs: Vital Signs Temp Pulse Resp BP Pulse Ox 10/27/20 16:32 97.6 F 85 17 129/89 99 10/27/20 16:31 97.6 F 85 17 129/89 99 - My Orders Last 24 Hours: My Active Orders 10/27/20 17:16 CULTURE STREP A CONFIRMATION [RM] Stat STREP SCRN A RAPID W CULT CONF [RM] Stat 10/27/20 17:35 CORONAVIRUS COVID-19, TYRONE Stat - Assessment/Plan Last 24 Hours: My Active Orders 10/27/20 17:16 CULTURE STREP A CONFIRMATION [RM] Stat STREP SCRN A RAPID W CULT CONF [RM] Stat 10/27/20 17:35 CORONAVIRUS COVID-19, TYRONE Stat Plan: Assessment Acuity = acute Site and laterality = pharyngitis Etiology = unknown Manifestations = none Location of injury = Home Lab values = rapid strep is negative culture is pending Covid test is pending Plan Symptomatic care follow-up primary care 3 to 5 days if not better This note was dictated using [employer] voice recognition software please call with any questions on syntax or grammar.
== END 2020-10-27 17:51 | disposition home or self-care (01) ==
LOC: JP.ED 16:22
DX: J02.9 Acute pharyngitis, unspecified (principal); Z20.822 Contact with and (suspected) exposure to COVID-19; Z88.1 Allergy status to other antibiotic agents; Z88.8 Allergy status to other drugs, medicaments and biological substances; Z88.7 Allergy status to serum and vaccine
CPT/HCPCS: 87081; 87880-QW; 99282; 99283; U0002

== ENCOUNTER 2021-09-29 10:59 | Emergency (ER) | payer MEDICAID ==
--- NOTE | 2021-09-29 11:58 | EDM.PDOC ---
ED HPI GENERAL MEDICAL PROBLEM - General Chief Complaint: Back Pain or Injury Stated Complaint: FALL LOWER BACK PAIN Time Seen by Provider: 09/29/21 11:35 Source of Information: Reports: Patient, Family History Limitations: Reports: No Limitations - History of Present Illness INITIAL COMMENTS - FREE TEXT/NARRATIVE: 31-year-old female was walking some horses 2 days ago when she slipped on the ice and landed hard on her backside and tailbone. Over the past 36 hours she has had marked increased pain especially with moving. When sitting still feels reasonably okay. She has some pain radiating through the right buttock into the right thigh. She went to the chiropractor and it "did not help". She took some ibuprofen and that is not helping either. She wants to make sure she has nothing broken. Onset: Sudden Duration: Day(s): (3 days ago) Location: Reports: Pelvis (Sacral area of the pelvis and extreme lower lumbar spine) Improves with: Reports: Rest Worsens with: Reports: Other (Ambulating is painful), Movement Associated Symptoms: Reports: Other (Some radiation of pain down the right leg to the knee, no paresthesias) Lower Back Pain Score (Numeric/FACES): 4 - Related Data Allergies Allergy/AdvReac Type Severity Reaction Status Date / Time cefaclor Allergy Rash Verified 10/27/20 16:33 cefixime Allergy Rash Verified 10/27/20 16:33 nitrofurantoin Allergy Other Verified 10/27/20 16:33 [From Macrobid] pertussis vaccine,adsorbed Allergy Other Verified 10/27/20 16:33 ranitidine [From Zantac] Allergy Other Verified 10/27/20 16:33 Home Meds: Home Meds Levothyroxine Sodium [Synthroid] 135 mcg PO DAILY 11/04/19 [History] Cider Vinegar [Apple Cider Vinegar] 300 mg 09/29/21 [History] Ferrous Sulfate, Dried [Iron] 09/29/21 [History] Omega3/Dha/Epa/Fish Oil/Vit D3 [[place]-3 + Vitamin D3] 1 each PO 09/29/21 [History] traZODone 50 mg PO BEDTIME 09/29/21 [History] Past Medical History HEENT History: Reports: Otitis Media Other HEENT History: preauricular mass Cardiovascular History: Reports: Other (See Below) Other Cardiovascular History: palpations Respiratory History: Reports: Other (See Below) Other Respiratory History: exercise induced asthma Gastrointestinal History: Reports: None Genitourinary History: Reports: UTI, Recurrent [employer]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: , Spontaneous Musculoskeletal History: Reports: None Neurological History: Reports: None, Migraines Psychiatric History: Reports: Anxiety Endocrine/Metabolic History: Reports: Hypothyroidism Oncologic (Cancer) History: Reports: Thyroid 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 - Infectious Disease History Infectious Disease History: Reports: Chicken Pox - Past Surgical History Head Surgeries/Procedures: Reports: None HEENT Surgical History: Reports: Myringotomy w Tube(s) Cardiovascular Surgical History: Reports: None Respiratory Surgical History: Reports: None GI Surgical History: Reports: Cholecystectomy, Hernia, Abdominal Female Surgical History: Reports: None Endocrine Surgical History: Reports: Thyroidectomy Neurological Surgical History: Reports: None Musculoskeletal Surgical History: Reports: None Oncologic Surgical History: Reports: None Dermatological Surgical History: Reports: None Social & Family History - Family History Family Medical History: No Pertinent Family History - Tobacco Use Tobacco Use Status *Q: Never Tobacco User Second Hand Smoke Exposure: No - Caffeine Use Caffeine Use: Reports: None ED ROS GENERAL - Review of Systems Review Of Systems: See Below Constitutional: Denies: Fever, Chills HEENT: Reports: No Symptoms Respiratory: Reports: No Symptoms Cardiovascular: Reports: No Symptoms GI/Abdominal: Reports: No Symptoms Musculoskeletal: Reports: Back Pain (Extreme lumbar low back pain and sacral pain) Skin: Denies: Bruising Neurological: Reports: Other (Neuropathic like radiation of pain down the right thigh and buttock, no paresthesias). Denies: Paresthesia Psychiatric: Reports: No Symptoms ED EXAM,LOWER BACK PAIN/INJURY - Physical Exam Exam: See Below Exam Limited By: No Limitations General Appearance: Alert, No Apparent Distress, Other (Fairly comfortable while sitting still) Eye Exam: Bilateral Eye: Normal Inspection Head: Atraumatic Neck: Supple, Non-Tender Respiratory/Chest: No Respiratory Distress Back Exam: Paraspinal Tenderness (Very tender to palpation over the L5 and sacral area of the spine, no crepitus or bruising), Vertebral Tenderness Extremities: Other (Some increased pain with internal and external rotation of the right hip radiating into the sacrum) Neurological: Alert, No Motor/Sensory Deficits, Oriented x 3 Course - Vital Signs Last Recorded V/S: Last Vital Signs Temp 98.1 F 09/29/21 11:15 Pulse 64 09/29/21 11:15 Resp 16 09/29/21 11:15 BP 123/91 H 09/29/21 11:15 Pulse Ox 94 L 09/29/21 11:15 - Re-Assessments/Exams Free Text/Narrative Re-Assessment/Exam: 09/29/21 11:58 CT of the pelvis was ordered without contrast. This likely is just a sacral contusion. 09/29/21 12:48 IMPRESSION: 1. No fracture. 2. No space-occupying hematoma or fluid collection. Above results were discussed with the patient. She is going to continue with anti-inflammatories and increase activity as tolerated. Departure - Departure Time of Disposition: 12:50 Disposition: Home, Self-Care 01 Clinical Impression: Sacral contusion Qualifiers: Encounter type: initial encounter Qualified Code(s): S30.0XXA - Contusion of lower back and pelvis, initial encounter - Discharge Information Instructions: Tailbone Injury, [id number] Referrals: PCP,None [Primary Care Provider] - Forms: ED Department Discharge Care Plan Goals: Increase activity as tolerated, regular dose of ibuprofen should be helpful. Consider rechecking in 5 to 7 days if not improving satisfactorily, a physical therapy consult may be beneficial. Sepsis Event Note (ED) - Focused Exam Vital Signs: Vital Signs Temp Pulse Resp BP Pulse Ox 09/29/21 11:15 98.1 F 64 16 123/91 H 94 L
--- NOTE | 2021-09-29 12:40 | CRLCT ---
For Patients: As a result of the Century Cures Act, medical imaging exams and procedure reports are released immediately into your electronic medical record. You may view this report before your referring provider. If you have questions, please contact your health care provider. HISTORY: Sacral trauma. TECHNIQUE: Noncontrast CT of the pelvis. COMPARISON: No prior. FINDINGS: There is no acute pelvic or proximal femoral fracture. Specifically, there is no sacral or coccygeal acute fracture. No localized fluid collection or space-occupying hematoma. Pelvic calcifications likely represent phleboliths. No hip joint space narrowing. 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 The sacroiliac joints are maintained. IMPRESSION: 1. No fracture. 2. No space-occupying hematoma or fluid collection. Dictated by Nicholas Will MD @ 09/29/2021 12:39:57 PM Please note that all CT scans at this facility use dose modulation, iterative reconstruction, and/or weight-based dosing when appropriate to reduce radiation dose to as low as reasonably achievable. Dictated by: Nicholas Will MD @ 09/29/2021 12:40:04 (Electronically Signed)
== END 2021-09-29 12:55 | disposition home or self-care (01) ==
LOC: JP.ED 10:59
DX: S30.0XXA Contusion of lower back and pelvis, initial encounter (principal); E03.9 Hypothyroidism, unspecified; Z88.1 Allergy status to other antibiotic agents; Z88.8 Allergy status to other drugs, medicaments and biological substances; Z88.7 Allergy status to serum and vaccine; Z79.899 Other long term (current) drug therapy; W00.0XXA Fall on same level due to ice and snow, initial encounter
CPT/HCPCS: 72192; 99283-25

== ENCOUNTER 2022-04-28 10:32 | Emergency (ER) | payer MEDICAID ==
[2022-04-28] MEDS ORDERED: diphenhydrAMINE 25 MG Cap PO ONE (11:08)
[2022-04-28 11:51] LABS: ESTIMATED GFR 101 mL/min (>60)
== END 2022-04-28 12:19 | disposition home or self-care (01) ==
LOC: JP.ED 10:32
DX: T78.40XA Allergy, unspecified, initial encounter (principal); K21.9 Gastro-esophageal reflux disease without esophagitis; Z88.1 Allergy status to other antibiotic agents; Z88.8 Allergy status to other drugs, medicaments and biological substances; Z90.49 Acquired absence of other specified parts of digestive tract
CPT/HCPCS: 36415; 80053; 84443; 85025; 99283; A9270